=== PATIENT | female | born 1965 | race Caucasian/White ===

== ENCOUNTER 2023-11-06 22:00 | Emergency (ER) | payer OTHER, SELFPAY ==
[2023-11-06 22:04] VITALS: BP 106/55
--- NOTE | 2023-11-06 22:37 | ED.GENMED ---
History of Present Illness
<Kamlesh Canales MEREDITH - Last Filed: 11/07/23 01:09>
General
Chief Complaint: Musculo-Skeletal Complaint
Source: patient and spouse
Time Seen by Provider: 11/06/23 22:03
Travel History
Have you had any contact with someone who has COVID-19?: No
Do you have any symptoms of coronavirus? Fever > 100 degrees, chills, cough, shortness of breath, sore throat, loss of taste or smell, muscle aches, or headache?: No
History of Present Illness
History of Present Illness:
58 year old female with hx of throacic meningioma s/p laminectomy T1-T3 on 11/02/23 who presents for evaluation after an episode of whole body chills that occurred at 2044 today. Today pt went out for a walk at around 1900. Prior to the walk she
took a dose of Miralax. While walking she had severe abdominal pain and states it was an abdominal spasm. She experienced a similar episode 10 years ago. She felt dizzy and felt like passing out and she sat down on the floor. She went home with her
and states she felt 'weird'. She sat on a recliner chair and took a dose of gabapentin and methocarbamol at around 2044 hoping it would make her feel better. 2-3 minutes after, she experienced an episode of whole body shaking. Her
helped her out of the chair and laid her on the floor. Denies LOC, head, neck or back injury, dizziness, head ache. Pt states she remembers the whole event. Whole body shaking lasted for 45 minutes until she was in the ambulance. She has not
experienced this before. Currently, she states she is feeling fine. Denies chest pain, SOB, abdominal pain, n/v/d, focal weakness, numbness, tingling, dizziness, head ache, vision changes, neck or back pain. Pt is concerned she may have a CSF leak
due to the violent shaking. Immediately after her surgery, she states she had a CSF leak and needed a drain. Drain was removed yesterday. Since then she has been feeling fine. is present at bedside. Surgyer performed at [facility] by
Dillan Govea.
Review of Systems
<ELIER Hector - Last Filed: 11/07/23 01:09>
Review of Systems
Allergies reviewed?: Yes
All Other Systems: ROS reviewed and negative except as documented in HPI and ROS
Constitutional: Reports chills
EENT: Reports no symptoms
Respiratory: Reports no symptoms
Cardiac: Reports no symptoms
ABD/GI: Reports abdominal pain
: Reports no symptoms
Musculoskeletal: Reports no symptoms
Skin: Reports no symptoms
Neurological: Reports no symptoms
Endocrine: Reports no symptoms
Hematologic/Lymphatic: Reports no symptoms
Psychiatric: Reports no symptoms
Phy Exam
<ELIER Hector - Last Filed: 11/07/23 01:09>
General Physical Exam
General Presentation: well appearing and no apparent distress
General age: appears stated age
General Skin: warm and dry
General Habitus: normal
General Mental: alert
General Hydration: appears well hydrated
Cardiovascular Exam
Cardiovascular Exam: regular rate/rhythm, no edema, no gallop, no murmur and normal peripheral pulses
Pulmonary Exam
Pulmonary Exam: lungs clear, no respiratory distress, no rales, no crackles, no rhonchi, no wheezing and no cough
Gastrointestinal Exam
Gastrointestinal Exam: normal bowel sounds, non tender, soft, no pulsatile mass and non distended
Neurological Exam
Neurological Exam: alert, oriented x3, CN II-XII intact, no motor deficits, no sensory deficits, speech normal and normal gait
Musculoskeletal Exam
Musculoskeletal Exam: full ROM (all 4 extremities) and other (limited ROM of neck s/p spinal surgery )
Skin Exam
Skin Exam: normal color and warm/dry
Psychiatric Exam
Psychiatric Exam: normal mood/affect
Course
<ELIER Hector - Last Filed: 11/07/23 01:09>
Vital Signs
Initial and Last Documented VS:
Initial Vital Signs
Temp Pulse Resp BP Pulse Ox
99 F 95 18 106/55 100
11/06/23 22:04 11/06/23 22:04 11/06/23 22:04 11/06/23 22:04 11/06/23 22:04
Last Documented Vital Signs
Temp Pulse Resp BP Pulse Ox
99 F 95 18 106/55 100
11/06/23 22:04 11/06/23 22:04 11/06/23 22:04 11/06/23 22:04 11/06/23 22:04
<Joann Yu DO - Last Filed: 11/07/23 00:04>
Vital Signs
Initial and Last Documented VS:
Initial Vital Signs
Temp Pulse Resp BP Pulse Ox
99 F 95 18 106/55 100
11/06/23 22:04 11/06/23 22:04 11/06/23 22:04 11/06/23 22:04 11/06/23 22:04
Last Documented Vital Signs
Temp Pulse Resp BP Pulse Ox
99 F 95 18 106/55 100
11/06/23 22:04 11/06/23 22:04 11/06/23 22:04 11/06/23 22:04 11/06/23 22:04
<ELIER Hector - Last Filed: 11/07/23 01:09>
MDM/Problems Addressed
Differential Diagnosis Includes:
medication side effect, post-op infection
MDM/Problems Addressed:
58 year old female who presents for an evaluation of an episode of whole body chills that occurred at 2044 today.
Chronic conditions affecting care: Neurological disorder (meningioma)
<ELIER Hector - Last Filed: 11/07/23 01:09>
*Critical Care Note
Total Time (30-74mins, 75-104mins- exclusive of procedures): Not Applicable
<Joann Yu DO - Last Filed: 11/07/23 00:04>
*Pulse Oximetry
Patient hypoxic: no
*Recreation Therapy Director Interpretation
Rate: normal
Interpretation: normal
Rhythm: sinus
ED Attending Note
<ELIER Hector - Last Filed: 11/07/23 01:09>
-
Portions of this chart may have been created with voice recognition software.� Occasional wrong word or��sound alike� substitutions may have occurred due to the inherent limitations of voice recognition software.
<Joann Yu DO - Last Filed: 11/07/23 00:04>
ED Attending Note
Patient seen and examined by attending physician: Yes
I performed the substantive portion of visit, reviewed & personally made and approve the management plan that is documented in note by myself or GRANT.: Yes
I performed a history and physical exam of patient and discussed management with resident, I reviewed resident's note and agree with documented findings and plan of care.: Yes
ED Attending Note:
This is a 58-year-old woman who underwent T1 thoracic meningioma resection 4 days ago by neurosurgeon Dr. Keen at [facility]. She was discovered to have this meningioma noted on MRI during workup for acute upper back pain that she [place] noted [place]. Meningioma was causing severe thoracic cord compression at T1 level but no neurologic deficits. Meningioma was successfully removed without requiring spinal fusion. She was noted to have a postop dural leak
which was expected and resolved within 2 days postop and she was discharged yesterday to home locally.
She has been feeling quite well with minimal upper back pain which she describes as an ache which is most noted at nighttime.
Postoperative medications include Decadron, as needed gabapentin, as needed methocarbamol, as needed Fioricet for headache. She was prescribed oxycodone preoperatively as well as briefly postoperatively but has not required since discharge home
yesterday.
She does have history of IBS with constipation which over the past 10 years has been very well-controlled maintaining a healthy diet as well as avoiding gluten and maintained on daily probiotics.
She does admit to moderate constipation postoperatively with last bowel movement perhaps 4 days ago. Her appetite has been good. She was started on MiraLAX preoperatively, continued this postoperatively as well as some other laxatives while
hospitalized at [facility].
Since discharge home yesterday she took a dose of MiraLAX yesterday and then 2 doses today.
She ate a large meal for dinner around 7 PM and then went for a long walk after dinner and during her walk back to the car she developed severe generalized abdominal cramping pain feeling that she needed to pass a bowel movement. Severe abdominal
cramping associated with lightheadedness, tunnel vision which promptly resolved after patient repositioned herself to lie down on the ground. She did not lose consciousness, no nausea nor vomiting. She and her drove home where she
proceeded to pass a large soft bowel movement and was feeling markedly improved without return of abdominal cramping.
She then at approximately 9 PM took a dose of gabapentin as well as methocarbamol and then approximately 15 minutes later she developed generalized shaking accompanied with mild chills. Shaking persisted without associated abdominal nor back pain,
no fever, no chest pain, no rash no itching, no shortness of breath, no dizziness nor lightheadedness. Due to persistent shaking she called 911 and presented to the ED. Generalized shaking resolved en route to the hospital and has not recurred.
She is currently feeling well without complaints.
She does note similar episode of severe abdominal cramping, accompanied with near syncope, last occurring perhaps 10 years ago along with constipation which she related to her irritable bowel syndrome.
Similar episodes as such have been well-controlled with dietary changes and avoidance of constipation.
She has not experienced similar episodes of generalized shaking however and is concerned for possible medication reaction. She did have a dose of gabapentin and Robaxin earlier in the day without adverse effects.
GENERAL: 58-year-old woman appears her stated age, bright and alert, pleasant, appears in no acute distress. Easily communicative. is accompanying. Vital signs within normal limits.
EYE: pupils equal and reactive. anicteric
NECK: Supple, nontender, no meningismus, no significant adenopathy. There is a midline upper thoracic incision that is dry and intact.
ENT: posterior pharynx is clear, oral mucosa is moist. TM clear b/l, nares patent.
CARDIAC: Regular rate and rhythm. no murmur.
LUNGS: Clear breath sounds bilaterally, no acute respiratory distress, no wheezes/rales/rhonchi
ABDOMEN: Soft, nondistended, without focal tenderness, no r/g, no cvat. normoactive BS. No palpable masses. No bruit.
NEUROLOGICAL: Alert and oriented x3, no focal neuro deficits. Gait is cantu and steady.
SKIN: Warm and dry, normal color, skin intact. No rash.
MUSCULOSKELETAL: No C/C/E. peripheral pulses are full and equal b/l. No palpable tenderness.
PSYCH: Normal and appropriate interaction.
Patient presents with what sounds like vasovagal near syncope accompanied with generalized abdominal cramping followed by passage of a large bowel movement.
She has been constipated for 4 to 5 days prior to this episode and had been taking several different laxatives, stool softeners.
I suspect this stool softeners accompanied with large meal began to finally take effect with significant triggering of vagus nerve with subsequent vasovagal near syncope.
More than an hour after that she then developed generalized shaking accompanied with chills that began shortly after taking a dose of gabapentin and Robaxin. Shaking chills concerning for rigors but patient reports no fever and is afebrile upon
arrival to the ED. Generalized shaking has since resolved without return.
This could certainly be adverse medication reaction and if so likely related to gabapentin.
Patient is overall feeling well and elects to avoid further workup, elects to avoid laboratory studies, radiologic studies.
She has contacted her neurosurgeon and has left a message for call back.
Monitor shows normal sinus rhythm.
Overall patient is well in appearance. No focal neurodeficits.
Will trial oral fluids, water and continue to observe.
If she remains asymptomatic it is certainly reasonable to discharge to home with recommendations for prompt follow-up with her neurosurgeon as well as understanding for prompt return if symptoms recur.
11/06/2023 2331 PM
Patient continues to feel well, she has had no return of shaking, no abdominal pain or cramping, tolerating oral fluids/water well and is eager to be discharged to home.
She remains hemodynamically stable, no focal neurodeficits and remains pain-free.
At this point not completely clear that she suffered an adverse medication reaction but if so, gabapentin is likely the causative agent and at this point does not appear that gabapentin is even necessary. Recommend she hold off on further doses of
gabapentin.
She has now been moving her bowels after 4 days of constipation and I suspect her large meal for dinner, 2 doses of MiraLAX today were cause for abdominal cramping with ensuing vasovagal episode.
Recommend she hold off on further doses of MiraLAX as she has not been taking narcotic medication. Continue Tylenol for as needed pain and otherwise stay well-hydrated, avoid large meals.
Follow-up with PCP as well as neurosurgeon.
Return precautions discussed.
Discharge Plan
Departure
Patient Disposition: Home (Routine Discharge)
Date of Disposition: 11/06/23
Time of Disposition: 23:25
Patient with high blood pressure during this ER visit?: No
Condition: Good
Discharge Problem:
Acute vasovagal near syncope, postoperative constipation-resolving, adverse medication reaction-gabapentin
Instructions: Side effects from medicines, Vasovagal Response (DC), IBS Diet
Referrals:
Tr Cerna DO [Family Provider] - Call in 1-3 days for appt
Activity Restrictions/Additional Instructions:
Stay well-hydrated on a daily basis.
Continue your healthy diet, continue to avoid gluten in your diet.
Resume probiotic after 1 week postop as recommended by neurosurgeon.
At this point it is completely clear that medications were cause for episode of shaking but if this is the case then likely related to gabapentin, thus we recommend you avoid further doses of gabapentin.
I also recommend that you hold off on MiraLAX at least over the next 24 hours as you are now moving her bowels and have not been taking narcotic pain medication, you should not require further stool softeners at this point.
Follow-up with your neurosurgeon as already scheduled.
Interventions
Interventions:
*Risk Screen - Suicide Last Done: 11/06/23 22:04
*General Assessment Last Done: 11/06/23 22:04
*Neglect/Abuse Screening Last Done: 11/06/23 22:04
*Nursing Disposition Last Done: 11/06/23 23:51
ED-Musculoskeletal Assessment Last Done: 11/06/23 23:50
Discharge Date and Time
Discharge Date/Time: 11/06/23 23:51
Print Language: PARAGUAYAN
== END 2023-11-06 23:51 | disposition home or self-care (01) ==
LOC: EMR 22:00
PROVIDERS: EMERGENCY PHYSICIAN Emergency Medicine; FAMILY PHYSICIAN Family Medicine
DX: R55 Syncope and collapse (principal); K58.1 Irritable bowel syndrome with constipation; T50.905A Adverse effect of unspecified drugs, medicaments and biological substances, initial encounter
CPT/HCPCS: 99282